=== PATIENT | male | born 1970 | race Caucasian/White ===

== ENCOUNTER 2022-12-31 06:13 | Inpatient (IN) | payer BC, SELFPAY ==
[2022-12-31] MEDS ORDERED: Ringers Lactate 1,000 ML IV ONE ×2 (06:50→10:10)
[2022-12-31 07:01] LABS: Absolute Lymphocytes (CBC) 2.1 K/uL (0.7-4.9); Hematocrit 32.4 % (39.6-49.0); MCV 92.2 fL (80-100); MPV 7.4 fL (7.6-11.3); Platelets 548 thou/uL (152-406); RBC Red Blood Cell Count 3.51 M/uL (4.33-5.43)
[2022-12-31 07:20] LABS: Albumin 2.1 g/dL (3.4-5.0); Bilirubin Direct 0.2 mg/dL (0-0.2); Bilirubin Indirect, Calculated 0.1 mg/dL (0.2-0.8); Bilirubin Total 0.3 mg/dL (0.2-1.0); Potassium 3.9 mEq/L (3.5-5.1); Protein, Total 7.1 g/dL (6.4-8.2)
[2022-12-31] MEDS ORDERED: CEFOXITIN SODIUM 1 GM/VIAL ONE (07:52)
[2022-12-31] MEDS ORDERED: FENTANYL CITR 100 MCG/2 ML ONE ×2 (08:06→10:46)
[2022-12-31] MEDS ORDERED: dexAMETHasone 10 MG/ML VIAL ONE (08:06)
[2022-12-31] MEDS ORDERED: LIDOCAINE 2% MPF 5 ML VIAL ONE (08:06)
[2022-12-31] MEDS ORDERED: propofoL 200 MG/20 ML VIAL IV ONE (08:06)
[2022-12-31] MEDS ORDERED: ROCURONIUM 50 MG/5 ML VIAL IV ONE (08:06)
[2022-12-31] MEDS ORDERED: MIDAZOLAM HCL 2 MG/2 ML INJ ONE (08:07)
[2022-12-31] MEDS ORDERED: KETOROLAC 30 MG/ML INJ ONE (08:07)
[2022-12-31] MEDS ORDERED: ONDANSETRON 4 MG/2 ML VIAL ONE ×2 (08:08→10:34)
[2022-12-31] MEDS ORDERED: LIDOCAINE 1% MPF 5 ML VIAL ONE (08:22)
[2022-12-31] MEDS ORDERED: SUCCINYLCHOLINE 20 MG/ML (10 ML) IV ONE (08:22)
[2022-12-31] MEDS ORDERED: NS 0.9% VIAL 10 ML ONE (09:06)
[2022-12-31] MEDS ORDERED: VECURONIUM 10 MG/VIAL IV ONE (09:06)
[2022-12-31] MEDS ORDERED: SUGAMMADEX SODIUM 200 MG/2 ML VIAL IV ONE (09:08)
[2022-12-31] MEDS ORDERED: METRONIDAZOLE 500mg IVPB 500 MG/100 ML BAG IV ONE (09:25)
[2022-12-31] MEDS ORDERED: SODIUM CHLORIDE 0.9% 10ML INJ IV PRN (10:04)
[2022-12-31] MEDS ORDERED: ONDANSETRON 4 MG/2 ML VIAL IV PRN (10:04)
[2022-12-31] MEDS: HYDROMORPHONE HCL 1 MG/ML INJ ONE ×2 (10:23→10:28)
[2022-12-31] MEDS ORDERED: HYDROMORPHONE HCL 1 MG/ML INJ ONE (10:35)
--- NOTE | 2022-12-31 10:45 | P.BOP ---
Preoperative diagnosis: RUQ abd pain, acute cholecystitis, symptomatic cholelithiasis Postoperative diagnosis: Large subphrenic perihepatic complex abscess, colitis, Primary procedure: Diagnostic laparoscopy, LAparoscopic extensive lysis of adhesions Secondary procedure: Biopsy and drainage of large subphrenic perihepatic complex abscess Estimated blood loss: <30cc Specimen: culture , biopsy Findings: foul smelling very large subphrenic perihepatic complex abscess Anesthesia: General Complications: None Drain(s): IRINA drain Transferred to: Recovery Room Condition: Good
[2022-12-31 13:32] VITALS: BMI 24.3
[2022-12-31] MEDS: NA CHLORIDE 0.9% 1,000 ML IV SCH (13:43)
[2022-12-31] MEDS: CEFOXITIN 1 GM in NA CHLORIDE 0.9% 50 ML IVPB SCH (13:49)
[2022-12-31] MEDS: PIPER TAZO 3.375 GM in NA CHLORIDE 0.9% 100 ML IV SCH (14:48)
[2022-12-31] MEDS: HYDROMORPHONE HCL 1 MG/ML INJ IV PRN ×2 (18:40→20:44)
[2023-01-01] MEDS: NA CHLORIDE 0.9% 1,000 ML IV SCH ×3 (00:13→22:20)
[2023-01-01] MEDS: CEFOXITIN 1 GM in NA CHLORIDE 0.9% 50 ML IVPB SCH ×2 (00:14→06:40)
[2023-01-01] MEDS: HYDROMORPHONE HCL 1 MG/ML INJ IV PRN ×11 (00:15→22:20)
[2023-01-01] MEDS: PIPER TAZO 3.375 GM in NA CHLORIDE 0.9% 100 ML IV SCH ×3 (02:02→16:23)
[2023-01-01 02:44] LABS: Hematocrit 34.6 % (39.6-49.0); Lymphocytes % 11.7 % (15.3-44.8); MCV 92.3 fL (80-100); MPV 7.4 fL (7.6-11.3); Platelets 625 thou/uL (152-406); RBC Red Blood Cell Count 3.75 M/uL (4.33-5.43)
[2023-01-01 03:05] LABS: Potassium 4.3 mEq/L (3.5-5.1)
[2023-01-01] MEDS: PANTOPRAZOLE 40 MG INJ IVP SCH (08:18)
--- NOTE | 2023-01-01 10:18 | RAD REPORT ---
EXAM DESCRIPTION: RAD - Chest Pa And Lat (2 Views) - 12/31/2022 6:34 am CLINICAL HISTORY: Preoperative assessment. TECHNIQUE: Chest x-ray 2 views, PA and lateral COMPARISON: None. FINDINGS: Heart: Normal size and configuration. Mediastinal Structures: There is atherosclerosis of the thoracic aorta. Lung Flannery: Clear for active infiltrates. There is mild atelectasis in the right posterior lung base. Pulmonary Vascularity: Normal. Pleural Space: No active disease. IMPRESSION: 1. No acute cardiopulmonary disease. 2. Atherosclerotic disease. Electronically signed by: Luke Mora MD 12/31/2022 11:44 PM PLASTIC CUTTER Due to temporary technical issues with the PACS/Fluency reporting system, reports are being signed by the in house radiologist without review as a courtesy to ensure prompt reporting. The interpreting r adiologist is fully responsible for the content of the report.
[2023-01-02] MEDS: HYDROMORPHONE HCL 1 MG/ML INJ IV PRN ×7 (00:30→20:57)
[2023-01-02] MEDS: PIPER TAZO 3.375 GM in NA CHLORIDE 0.9% 100 ML IV SCH ×3 (00:30→16:48)
[2023-01-02] MEDS: NA CHLORIDE 0.9% 1,000 ML IV SCH ×5 (03:00→23:00)
[2023-01-02] MEDS: PANTOPRAZOLE 40 MG INJ IVP SCH (08:10)
--- NOTE | 2023-01-02 09:12 | P.CNS ---
Date of Consult: 01/02/23 Reason for Consult: large subphrenic complex abscess Requesting Physician: Aroldo Aceves Chief Complaint: abdominal pain, generalized weakness History of Present Illness: Patient is a 52 yo male with a past medical history of hypertension and GERD who presented to the ED with complaints of generalized weakness and abdominal pain. Patient reports he has been experiencing generalized weakness and abdominal pain for about 6 months, which had gotten to the point of being intolerable which led him to present to the ED. Patient underwent diagnostic laparoscopy on 12/[address] Aceves during which a large subphrenic perihepatic complex abscess was drained and culture/biopsy sent. Infectious disease was consulted. Allergies No Known Allergies Allergy (Verified 12/31/22 08:06) Home medications list reviewed: Yes Home Medications: Clonidine HCl [Catapres*] 0.2 mg PO BID 12/31/22 Famotidine 10 mg PO BEDTIME 12/31/22 Omeprazole 40 mg PO DAILY 12/31/22 - Past Medical/Surgical History -: hypertension -: gerd -: kidney stones -: hernia,francisco inguinal -: left ankle shattered - Social History Alcohol use: No CD- Drugs: No Caffeine use: No Place of Residence: Home Review of Systems 10-point ROS is otherwise unremarkable General: Weakness Gastrointestinal: Abdominal Pain (improving) Physical Examination Temp Pulse Resp BP Pulse Ox 98.1 F 101 H 18 150/86 H 93 01/02/23 04:00 01/02/23 04:00 01/02/23 09:04 01/02/23 04:00 01/02/23 09:04 General: Alert, In no apparent distress, Oriented x3 HEENT: Atraumatic, Normocephalic Neck: Supple, JVD not distended Respiratory: Clear to auscultation bilaterally, Normal air movement Cardiovascular: No edema, Regular rate/rhythm Gastrointestinal: Normal bowel sounds, Other (mild tenderness at surgical incision sites. IRINA drains noted. ) Musculoskeletal: No clubbing Integumentary: Other (laparoscopic abdominal incision sites with IRINA drain.) Neurological: Normal speech, Normal tone, Normal affect Laboratory Data - Reviewed Microbiology Data - Reviewed Imagings Data: - Reviewed Conclusions/Impression: Problem List Large Subphrenic Perihepatic Complex Abscess Hypertension GERD Large Subphrenic Perihepatic Complex Abscess - s/p diagnostic laparoscopy with biopsy and drainage of large subphrenic perihepatic complex abscess on 12/[address] Aceves. - Abscess cultures 12/31: No growth to date - On Zosyn (started 12/31) - Patient reports he is feeling better now than he has in the past 6 months - Passing gas. + bowel sounds. Tolerating diet. Leukocytosis (WBC 16.9) Afebrile Recommendations - Subphrenic/perihepatic abscess s/p drainage: Continue antibiotic therapy for 10-14 days. - Currently on Zosyn - Consider switch to Ciprofloxacin 500mg PO BID plus Metronidazole 500mg PO TID to complete remainder of antibiotic course. - Monitor WBC and fever trends - Incision site / IRINA drain care per Dr. Aceves - Follow up with Dr. Aceves as outpatient Case discussed with Maciej Matt
--- NOTE | 2023-01-02 19:22 | PN ---
Date of Progress Note: 01/02/2023 Diagnosis: Right subphrenic large complex abscess. Subjective: This is a case of a 52-year-old patient who comes to us with a year history of abdominal pain, right upper quadrant. Had ultrasound recently, which shows just cholelithiasis. When we took him and did diagnostic lap with camera, we noticed this large complex gigantic abscess subphrenic th at required an extensive amount of fluid to just irrigate. At that moment, the adhesions are in irri gation and the inflammation is so much that we could not proceed with surgery as initially plan. So, we concentrated on trying to drain that subphrenic abscess. The patient today feels a lot better. He is tolerating diet. He stated he feels the best that he ever felt for the last 6-8 months. His n ausea went away. His shoulder pain went away. His even right side abdominal pain went away. Objective: Vital Signs: Stable with no fever. Laboratory Data: Blood work is pending. We have 1 lab from yesterday shows WBC count of 16.9. The microbiology still preliminary has not grown any tissue yet. This is just foul smelling tissue that we cultured, so we are waiting for the final. Plan: Continue antibiotics. CBC in a.m. Out of bed. Continue diet. KIRSTIN/IGOR Voice ID: [id number] Report ID: [id number]
[2023-01-02] MEDS ORDERED: MAGNES/ALUMIN/SIMET 30ML UCUP PO ONE (21:07)
[2023-01-02] MEDS: cloNIDine HCL 0.1 MG TAB PO SCH (21:30)
[2023-01-02] MEDS: HYDROCODONE/APAP 7.5/325 MG TAB PO PRN (23:22)
[2023-01-03] MEDS: PIPER TAZO 3.375 GM in NA CHLORIDE 0.9% 100 ML IV SCH ×3 (00:22→16:31)
[2023-01-03] MEDS: NA CHLORIDE 0.9% 1,000 ML IV SCH ×4 (03:53→23:45)
[2023-01-03 04:40] LABS: Absolute Lymphocytes (CBC) 2.1 K/uL (0.7-4.9); Hematocrit 28.5 % (39.6-49.0); Lymphocytes % 23.6 % (15.3-44.8); MCV 91.3 fL (80-100); MPV 6.8 fL (7.6-11.3); Platelets 457 thou/uL (152-406); RBC Red Blood Cell Count 3.12 M/uL (4.33-5.43)
[2023-01-03 04:53] LABS: Potassium 3.4 mEq/L (3.5-5.1)
[2023-01-03] MEDS: PANTOPRAZOLE 40 MG INJ IVP SCH (09:15)
[2023-01-03] MEDS: cloNIDine HCL 0.1 MG TAB PO SCH ×2 (09:29→21:15)
--- NOTE | 2023-01-03 14:23 | EKG ---
Test Date: 2022-12-31 Test Time: 08:30:07 Rnfa: RADHAMES MEASUREMENT RESULTS: Intervals: Rate: 63 NH: 156 QRSD: 84 QT: 412 QTc: 421 Sims: P: 58 NH: 156 QRS: -9 T: 30 INTERPRETIVE STATEMENTS: Normal sinus rhythm Normal ECG Compared to ECG 12/31/2022 07:48:45 ST (T wave) deviation no longer present Electronically Signed On 01-03-23 14:12:12 PARTS ROOM ASSISTANT by Billy Davenport
--- NOTE | 2023-01-03 14:23 | EKG ---
Test Date: 2022-12-31 Test Time: 07:48:45 Production Control Expediter: ET MEASUREMENT RESULTS: Intervals: Rate: 83 OR: 158 QRSD: 96 QT: 370 QTc: 434 Elberta: P: 10 OR: 158 QRS: 74 T: -11 INTERPRETIVE STATEMENTS: Normal sinus rhythm Nonspecific ST and T wave abnormality Abnormal ECG No previous ECG available for comparison Electronically Signed On 01-03-23 14:12:21 CLOTH BLEACHING RANGE OPERATOR CHIEF by Billy Davenport
--- NOTE | 2023-01-03 19:40 | PN ---
Date of Progress Note: 01/03/2023 Diagnosis: Large complex subphrenic abscess. Subjective: Vital signs stable. Patient is doing well. Tolerating diet. No shortness of breath. No chest pain. No fever. No nausea. No vomiting. Tolerating diet. Passing flatus. Objective: Chest: Clear. Abdomen: Soft and depressible. Intact surgical site. IRINA drain serosanguineous. No bile. No pus. The WBC count came back to normal once again. Plan: We are going to complete the IV antibiotics until tomorrow night. Then, after that, we are go ing to continue on antibiotics for about a week or 2 by mouth, that is if he continue doing as good a s he is doing. It is easier for him to go on Thursday night and Thursday morning. So as after even his antibiotics tomorrow, then he can go home unless once again vital signs or clinical change. Right no w, the abdomen is soft and depressible. No guarding or rebound. His pain that he has for the last y ear is completely resolved. Extremities have good capillary refill. Plan, see above. KIRSTIN/IGOR Voice ID: [id number] Report ID: [id number]
[2023-01-03] MEDS: DOCUSATE NA 100 MG CAP PO SCH (21:00)
[2023-01-03] MEDS: HYDROCODONE/APAP 7.5/325 MG TAB PO PRN (21:15)
[2023-01-04] MEDS: HYDROCODONE/APAP 7.5/325 MG TAB PO PRN (00:56)
[2023-01-04] MEDS: PIPER TAZO 3.375 GM in NA CHLORIDE 0.9% 100 ML IV SCH ×2 (00:56→08:47)
[2023-01-04] MEDS: NA CHLORIDE 0.9% 1,000 ML IV SCH (05:00)
[2023-01-04 07:05] VITALS: O2SAT 98
[2023-01-04] MEDS: cloNIDine HCL 0.1 MG TAB PO SCH (08:46)
[2023-01-04] MEDS: DOCUSATE NA 100 MG CAP PO SCH (08:46)
[2023-01-04] MEDS: PANTOPRAZOLE 40 MG INJ IVP SCH (08:46)
[2023-01-04 10:25] VITALS: BP 170/83; TEMP 97.7
--- NOTE | 2023-01-04 19:28 | P.DS ---
Admission Date: 12/31/22 Discharge Date: 01/04/23 Disposition: ROUTINE DISCHARGE Discharge Condition: GOOD Reason for Admission: abdominal pain, generalized weakness Brief History of Present Illness: 52 y/o with subphrenic abscess Hospital Course: unremarakable Vital Signs/Physical Exam: Temp Pulse Resp BP Pulse Ox 97.7 F 74 16 170/83 H 94 01/04/23 08:00 01/04/23 08:00 01/04/23 08:00 01/04/23 08:00 01/04/23 08:00 General: Alert, In no apparent distress, Oriented x3, Cooperative HEENT: Atraumatic, Normocephalic, PERRLA Neck: Supple Respiratory: Normal air movement Cardiovascular: No edema, Normal pulses Gastrointestinal: Normal bowel sounds, Soft and benign, No rebound, No guarding, Other (IRINA serosanguineous , no pus) Musculoskeletal: No erythema, No tenderness, No warmth Integumentary: No rashes, No breakdown Neurological: Normal gait, Normal speech Laboratory Data at Discharge: WBC 8.70 thou/uL (4.3-10.9) 01/03/23 04:22 Hgb 9.9 g/dL (13.6-17.9) L 01/03/23 04:22 Hct 28.5 % (39.6-49.0) L 01/03/23 04:22 Plt Count 457 thou/uL (152-406) H 01/03/23 04:22 Sodium 142 mEq/L (136-145) 01/03/23 04:22 Potassium 3.4 mEq/L (3.5-5.1) L 01/03/23 04:22 BUN 6 mg/dL (7-18) L 01/03/23 04:22 Creatinine 0.43 mg/dL (0.70-1.30) L 01/03/23 04:22 Glucose 118 mg/dL (74-106) H 01/03/23 04:22 Total Bilirubin 0.3 mg/dL (0.2-1.0) 12/31/22 06:45 AST 12 U/L (15-37) L 12/31/22 06:45 ALT 36 U/L (16-61) 12/31/22 06:45 Alkaline Phosphatase 139 U/L (45-117) H 12/31/22 06:45 Lipase 12 U/L (13-75) L 12/31/22 06:45 Home Medications: Clonidine HCl [Catapres*] 0.2 mg PO BID 12/31/22 Famotidine 10 mg PO BEDTIME 12/31/22 Omeprazole 40 mg PO DAILY 12/31/22 Ciprofloxacin HCl [Cipro 500 MG Tablet] 500 mg PO BID #20 tab 01/04/23 metroNIDAZOLE [Flagyl] 500 mg PO Q8H #30 01/04/23 New Medications: Ciprofloxacin HCl [Cipro 500 MG Tablet] 500 mg PO BID #20 tab metroNIDAZOLE [Flagyl] 500 mg PO Q8H #30 Physician Discharge Instructions: REcord IRINA output q24h MAy take a shower with dressing off and replace gauze around drain Diet: AHA Activity: No lifting more than 10 lbs Followup: Aroldo Aceves MD [Primary Care Provider] - 1 Week
--- NOTE | 2023-01-21 14:22 | OP ---
Date of Procedure: 12/31/2022 Surgeon: Aroldo Aceves MD Preoperative Diagnoses: Right upper quadrant abdominal pain, acute cholecystitis, symptomatic cholel ithiasis. Postoperative Diagnosis: Large subphrenic perihepatic right-sided complex abscess and colitis. Procedure: Diagnostic laparoscopy, laparoscopic extensive lysis of adhesions, biopsy and drainage of large subphrenic right perihepatic complex abscess. Estimated Blood Loss: Less than 30 cc. Specimens: Culture and biopsy. Findings: Foul smelling very large subphrenic abscess at least 20 x 15 cm. There are lot of adhesio ns in the right upper side, we cannot even see the gallbladder in his case. Complications: None. Drains: IRINA #10. Indications: This is a case of a male, who came to us with abdominal pain. He states that he has be en told he has gallbladder disease, but nothing else. He had the imaging not in this area, but in [facility], showing cholelithiasis. The pain does not get better. It has been a year like that. So the benefits, alternatives, and risks of laparoscopic possible open cholecystectomy fully explained, whic h include, but not limited to, infection, bleeding, damage to adjacent structures, anesthesia complic ation, recurrence, MO, and even . He also understands this may not relieve any symptoms. He mi ght need more than one surgical intervention. He understood, signed a consent. The imaging report dexter Small was reviewed showing only symptomatic cholelithiasis at that moment. Description Of Procedure: The patient was brought to the operating room, placed in supine position. Anesthesia was done without complication. Abdominal area was prepped and draped in sterile fashion. Local anesthesia was applied followed by sharp incision of the skin in the periumbilical region. I ncision was carried down to fascia, which was opened under direct vision. Peritoneum was encountered , opened under direct vision. Vicryl #1 placed inside the fascia. Kofi trocar was carefully intro duced. Pneumoperitoneum was obtained. Immediately on putting the camera, it has been noted there we re lot of inflammatory process on the right upper quadrant, but it looks like some of that is chronic in origin. I put the 5 mm trocar in the epigastric area and we can clarify that most of the disease was happening on the subphrenic region. When we took a look at the stomach in the area where the ga llbladder should be between those adhesions, we do not see any acute inflammation in that area. What we see is patient to have a large subphrenic abscess. After we took the adhesions down, a lot of pu s came in from the area just over the dome of the liver. There was a small amount of the hepatic fle xure colon in that region that shows some colitis, but it seems to be reactive. The etiology of that abscess is unknown. The area down in the gallbladder although we cannot visualize, we do not see th e acute inflammation in that region, so we have to make the decision at this moment. There was a lar ge abscess in that region. The gallbladder may not be able to be done safely at this moment and sinc e that he has 2 different problems and maybe that he has the inflammation of the gallbladder or the c olon before and will see to this, but he says he has been feeling like this for a year and this is wh at it looks like it has been for a long time. So profuse irrigation was done of the cavity after ope n and drainage of complex abscess, so we have to break loculations, obtained biopsies and cultures an d started to put several IRINA drains in that region and then postponed the gallbladder surgery for the future. The stomach seems to be okay. The duodenum seems not to be involved and the biliary system down below, I do not see once again any acute inflammation for me to justify going after this without taking care of the infection first. I discussed that with the family too. At that moment, after pu tting the drains and drainage of the abscess and doing the biopsy, we proceeded to remove the trocars under direct visualization. Deflated pneumoperitoneum. Closed the fascia with #1 Vicryl, irrigated subcutaneous tissue, closed that with 3-0 chromic. I had to mention that we had to get the LigaSure to remove lot of adhesions that the patient had at the dome of the liver. Half of the case was done just doing lysis of adhesions. The patient tolerated the procedure well. Patient sent to Recovery in stable condition. He will be started on I V antibiotics. HM/MODL Voice ID: [id number] Report ID: [id number]
== END 2023-01-04 13:59 | disposition home or self-care (01) | DRG 326 ==
LOC: OR 06:13 → PRE 06:13 → 2ND 10:07
PROVIDERS: ADMIT Surgery; ATTEND Surgery
PROC: 0W9G0ZX Drainage of Peritoneal Cavity, Open Approach, Diagnostic (ICD-10-PCS; 2022-12-31)
PROC: 0DN60ZZ Release Stomach, Open Approach (ICD-10-PCS; principal; 2022-12-31 08:30)
DX: K65.1 Peritoneal abscess (principal); K75.0 Abscess of liver; I10 Essential (primary) hypertension; K52.9 Noninfective gastroenteritis and colitis, unspecified; K21.9 Gastro-esophageal reflux disease without esophagitis; D72.829 Elevated white blood cell count, unspecified; Z79.899 Other long term (current) drug therapy
CPT/HCPCS: 36415; 71046; 80048; 80076; 83690; 85025; 87070; 87176; 87205; 93005; 94010; 97116; 97161; 97530; A4216; C9113; J0694; J1100; J1170; J2001; J2250; J2405; J2543; J2704; J3010; J7030; J7120